=== PATIENT | female | born 1955 | race Caucasian/White ===

== ENCOUNTER 2016-09-23 04:35 | Emergency (ER) | payer BC ==
[~2016-09-23] VITALS: Ht 154.9 cm; Wt 55.7 kg
[~2016-09-23 04:35] MED LIST: FAMO20TA11 PO
[2016-09-23 04:40] VITALS: TEMP 36.7; Ht 154.9 cm; Wt 55.7 kg
--- NOTE | 2016-09-23 04:47 | EMERGENCY ROOM VISIT NOTE ---
History Report prepared by Marium: Pablo Carson Under the Supervision of: Dr. Aakash Interiano D.O. First contact with patient: 04:40 Chief Complaint: ABDOMINAL PAIN Stated Complaint: NO APPETITE,DIARRHEA,PAINFUL CRAMPING,ACHING ABD History of Present Illness The patient is a 60 year old female who presents to the Emergency Room with complaints of cramping abdominal pain that began 5 days ago. She rates her pain a 2/10 in severity. She has been experiencing generalized body aches as well as a lack of appetite. Over this time, she has also been experiencing diarrhea that causes this abdominal pain. She has a past medical history of a section. She denies any recent antibiotic use. She denies any fevers. Source of History: patient Onset: 5 days ago Position: abdomen (RLQ) Symptom Intensity: 2/10 Quality: cramping Timing: constant Associated Symptoms: + nausea, + diarrhea, No fevers Review of Systems See HPI for pertinent positives and negatives. A total of ten systems were reviewed and were otherwise negative. Family History Omitted secondary to age. Social History Smoking Status: Never Smoker Smokeless Tobacco Use: No Drug Use: none Marital Status: Housing Status: lives with significant other Current/Historical Medications No Active Prescriptions or Reported Meds Allergies Coded Allergies: Aspirin (Unverified Allergy, Unknown, UNKNOWN, 09/23/16) BEE STING (Verified Allergy, Unknown, SWELLING, 09/23/16) Penicillins (Verified Allergy, Unknown, UNKNOWN, 09/23/16) Physical Exam Vital Signs Date Time Temp Pulse Resp B/P (MAP) Pulse Ox O2 Delivery O2 Flow Rate FiO2 09/23/16 06:23 75 18 129/75 98 Room Air 09/23/16 04:40 36.7 104 20 134/85 95 Room Air Physical Exam GENERAL: Awake, alert, well-appearing, in no distress HENT: Normocephalic, atraumatic. Oropharynx unremarkable. EYES: Normal conjunctiva. Sclera non-icteric. NECK: Supple. No nuchal rigidity. FROM. No JVD. RESPIRATORY: Clear to auscultation. CARDIAC: Regular rate, normal rhythm. Extremities warm and well perfused. Pulses equal. ABDOMEN: Soft, non-distended. Mild RLQ tenderness to palpation. No rebound, rigidity, or guarding. No masses. RECTAL: Deferred. MUSCULOSKELETAL: Chest examination reveals no tenderness. The back is symmetrical on inspection without obvious abnormality. There is no CVA tenderness to palpation. No joint edema. LOWER EXTREMITIES: Calves are equal size bilaterally and non-tender. No edema. No discoloration. NEURO: Normal sensorium. No sensory or motor deficits noted. SKIN: No rash or jaundice noted. Medical Decision & Procedures ER Provider Diagnostic Interpretation: X ray results as stated below per my interpretation and radiologist interpretation. Other radiology results as stated below per my review and radiologist interpretation CT ABDOMEN & PELVIS: Colonic wall thickening most prominent at the ascending and transverse colon, compatible with colitis. Differential considerations include inflammatory, infectious, or ischemic etiologies. Small-moderate pelvic free fluid. No free air. No evidence of bowel obstruction. Normal caliber appendix. Additional incidental findings. Radiologist: Lashonda Lennon M.D. Laboratory Results 09/23/16 05:00 Red Blood Count 4.85, Mean Corpuscular Volume 86.6, Mean Corpuscular Hemoglobin 30.3, Mean Corpuscular Hemoglobin Concent 35.0, Mean Platelet Volume 10.3, Neutrophils (%) (Auto) 69.7, Lymphocytes (%) (Auto) 20.9, Monocytes (%) (Auto) 7.5, Eosinophils (%) (Auto) 1.4, Basophils (%) (Auto) 0.4, Neutrophils # (Auto) 4.99, Lymphocytes # (Auto) 1.50, Monocytes # (Auto) 0.54, Eosinophils # (Auto) 0.10, Basophils # (Auto) 0.03 09/23/16 05:00 Test 09/23/16 05:00 09/23/16 05:14 White Blood Count 7.17 K/uL (4.8-10.8) Red Blood Count 4.85 M/uL (4.2-5.4) Hemoglobin 14.7 g/dL (12.0-16.0) Hematocrit 42.0 % (37-47) Mean Corpuscular Volume 86.6 fL (80-100) Mean Corpuscular Hemoglobin 30.3 pg (25-34) Mean Corpuscular Hemoglobin Concent 35.0 g/dl (32-36) Platelet Count 225 K/uL (130-400) Mean Platelet Volume 10.3 fL (7.4-10.4) Neutrophils (%) (Auto) 69.7 % Lymphocytes (%) (Auto) 20.9 % Monocytes (%) (Auto) 7.5 % Eosinophils (%) (Auto) 1.4 % Basophils (%) (Auto) 0.4 % Neutrophils # (Auto) 4.99 K/uL (1.4-6.5) Lymphocytes # (Auto) 1.50 K/uL (1.2-3.4) Monocytes # (Auto) 0.54 K/uL (0.11-0.59) Eosinophils # (Auto) 0.10 K/uL (0-0.5) Basophils # (Auto) 0.03 K/uL (0-0.2) RDW Standard Deviation 41.6 fL (36.4-46.3) RDW Coefficient of Variation 13.0 % (11.5-14.5) Immature Granulocyte % (Auto) 0.1 % Immature Granulocyte # (Auto) 0.01 K/uL (0.00-0.02) Urine Color DK YELLOW Urine Appearance CLOUDY (CLEAR) Urine pH 5.5 (4.5-7.5) Urine Specific Hamilton 1.030 (1.000-1.030) Urine Protein 1+ (NEG) Urine Glucose (UA) NEG (NEG) Urine Ketones 2+ (NEG) Urine Occult Blood NEG (NEG) Urine Nitrite NEG (NEG) Urine Bilirubin NEG (NEG) Urine Urobilinogen NEG (NEG) Urine Leukocyte Esterase NEG (NEG) Urine WBC (Auto) 1-5 /hpf (0-5) Urine RBC (Auto) 0-4 /hpf (0-4) Urine Hyaline Casts (Auto) 10-30 /lpf (0-5) Urine Epithelial Cells (Auto) >30 /lpf (0-5) Urine Bacteria (Auto) NEG (NEG) Urine Crystals CALCIUM OXALATE (NONE Urine Pathogenic Casts /lpf (0) Urine Mucus PRESENT (NONE PRSENT) Est Creatinine Clear Calc Drug Dose 50.6 ml/min Estimated GFR () 82.8 Estimated GFR (Non- 71.4 BUN/Creatinine Ratio 16.4 (10-20) Calcium Level 10.3 mg/dl (8.5-10.1) Total Bilirubin 1.6 mg/dl (0.2-1) Direct Bilirubin 0.2 mg/dl (0-0.2) Aspartate Amino Transf (AST/SGOT) 16 U/L (15-37) Alanine Aminotransferase (ALT/SGPT) 29 U/L (12-78) Alkaline Phosphatase 101 U/L (45-117) Total Protein 7.6 gm/dl (6.4-8.2) Albumin 4.0 gm/dl (3.4-5.0) Lipase 66 U/L (73-393) Bedside Hemoglobin 15.3 g/dl (12.0-16.0) Bedside Hematocrit 45 % (37-47) Bedside Sodium 139 mEq/L (135-144) Bedside Potassium 3.7 mEq/L (3.3-5.0) Bedside Chloride 101 mEq/L (101-112) Bedside Total CO2 26 mEq/l (24-31) Anion Gap 17.0 mmol/L (16-25) Bedside Blood Urea Nitrogen 15 mg/dl (7-18) Bedside Creatinine 0.8 mg/dl (0.6-1.3) Bedside Glucose (other) 139 mg/dl (70-99) Bedside Ionized Calcium (Clarisa) 1.41 mmol/l (1.12-1.32) Laboratory results reviewed by me Medications Administered Medications (Trade) Dose Ordered Sig/Yoav Route Start Time Stop Time Status Last Admin Dose Admin Sodium Chloride 1,000 ml @ 999 mls/hr Q1H1M STAT IV 09/23/16 04:55 09/23/16 05:55 DC 09/23/16 04:55 999 MLS/HR ED Course 0440: The patient was evaluated in room B7. A complete history and physical exam was performed. 0455: Ordered Sodium Chloride 1000 ml @ 999 mls/hr IV 0630: I reevaluated the patient. Discussed results and discharge instructions: She verbalized understanding and agreement. The patient is ready for discharge. Medical Decision Differential diagnoses include but are not limited to; gastritis, gastroenteritis, colitis, UTI, appendicitis, and kidney stone. Medication Reconciliation: I attest that I have personally reviewed the patient' s current medication list. Blood pressure screening: Patient was found to have normal blood pressure on screening and does not require follow-up. Resting in no distress on repeat examination. Discussed the evaluation workup of the patient and the patient's at bedside at 6:30 AM. Patient was instructed follow-up primary care physician as well as a GI physician in the very near future. She was instructed to return for increased pain fever nausea vomiting or significant abdominal pain. Impression Primary Impression: Acute colitis Scribe Attestation The scribe's documentation has been prepared under my direction and personally reviewed by me in its entirety. I confirm that the note above accurately reflects all work, treatment, procedures, and medical decision making performed by me. Departure Information Dispostion Home / Self-Care Prescriptions Hydrocodone/Acetaminophen 5MG/325MG (Force 5MG/325MG) Tab 1 TABLET PO Q6 Y for Pain, #10 TAB Prov: Aakash Interiano, DO 09/23/16 Ondasetron Odt (ZOFRAN ODT) 4 Mg Tab 4 MG SL Q6H for Nausea, #6 TAB Prov: Aakash Interiano, DO 09/23/16 Dicyclomine Hcl (BENTYL) 10 Mg Cap 10 MG PO Q8, #10 CAP Prov: Aakash Interiano, DO 09/23/16 Referrals No Doctor, Assigned (PCP) Forms HOME CARE DOCUMENTATION FORM, IMPORTANT VISIT INFORMATION Patient Instructions Abdominal Pain, [facility]
[2016-09-23] MEDS ORDERED: SODIUM CHLORIDE 0.9% 1000ML 1,000 ML IV STA (04:55)
[2016-09-23] MEDS ORDERED: OPTIRAY 320 IV PRN (05:15)
[2016-09-23 05:18] LABS: BASO % 0.4 %; BASO ABS # 0.03 K/uL (0-0.2); COMPLETE YES; EOS % 1.4 %; IG% 0.1 %; LYMPH % 20.9 %; MEAN CELL VOLUME 86.6 fL (80-100); MEAN CORPUSCULAR HEMOGLOBIN 30.3 pg (25-34); MEAN PLATELET VOLUME 10.3 fL (7.4-10.4); MONO % 7.5 %; NEUT % 69.7 %; PLATELET COUNT 225 K/uL (130-400); RED BLOOD COUNT 4.85 M/uL (4.2-5.4); WHITE BLOOD COUNT 7.17 K/uL (4.8-10.8)
[2016-09-23 05:25] LABS: URINE APPEARANCE CLOUDY (CLEAR); URINE COLOR DK YELLOW; URINE EPITHELIAL CELL AUTO >30 /lpf (0-5); URINE NITRITE NEG (NEG); URINE PH 5.5 (4.5-7.5); UROBILINOGEN NEG (NEG); ZZUR CULT IF INDIC CLEAN CATCH NO
[2016-09-23 05:28] LABS: ISTAT CREATININE 0.8 mg/dl (0.6-1.3); ISTAT HEMOGLOBIN 15.3 g/dl (12.0-16.0); ISTAT IONIZED CALCIUM 1.41 mmol/l (1.12-1.32)
[2016-09-23 05:31] LABS: MANUAL MICROSCOPIC REQUIRED? NO; REVIEW REQ? YES
[2016-09-23 05:32] LABS: URINE BILIRUBIN NEG (NEG)
[2016-09-23 05:36] LABS: BUN/CREATININE RATIO 16.4 (10-20); CALCIUM 10.3 mg/dl (8.5-10.1); CREATININE 0.87 mg/dl (0.60-1.20); POTASSIUM 3.7 mmol/L (3.5-5.1)
[2016-09-23 05:41] LABS: URINE MUCUS PRESENT (NONE PRSENT)
[2016-09-23 06:23] VITALS: BP 129/75; PULSE 75; O2SAT 98
[2016-09-23] MEDS ORDERED: ONDA4TAB10 SL (06:37)
[2016-09-23] MEDS ORDERED: DICY10CA55 PO (06:37)
[2016-09-23] MEDS ORDERED: HYDR-5688 PO (06:37)
--- NOTE | 2016-09-23 08:03 | DIAGNOSTIC IMAGING REPORT ---
CT ABD/PELVIS IV CONTRAST ONLY CLINICAL HISTORY: Right lower quadrant abdominal pain. Anorexia. Diarrhea. Cramping. COMPARISON STUDY: None. TECHNIQUE: Following the IV administration of 94 mL of Optiray-320, CT scan of the abdomen and pelvis was performed from the lung bases to the proximal femurs. Images are reviewed in the axial, sagittal, and coronal planes. IV contrast was administered without complication. CT DOSE: 245.37 mGy.cm FINDINGS: Lower chest: The heart is normal in size and configuration, without pericardial effusion. The lung bases and pleural spaces are clear. Liver: There are multiple tiny hepatic hypodensities, many of which approach water attenuation. There is however indeterminate 7 mm hypodensity within the right hepatic lobe which exceeds water attenuation. Gallbladder: Unremarkable. Spleen: Normal in size and attenuation. Pancreas: Unremarkable. Adrenal glands: Unremarkable. Kidneys: There is symmetric renal cortical enhancement. The kidneys are normal in size without hydronephrosis. Bowel: There are no transition zones indicate bowel obstruction. There is no acute diverticulitis. There is bowel wall thickening involving the colon most pronounced the level of the transverse and right colon. The findings are indicative of a nonspecific colitis. There are no findings to indicate acute appendicitis. Peritoneum: There is a small amount of free fluid in the pelvis. No free air is visualized. Vasculature: The abdominal aorta is normal in course and caliber. Adenopathy: There are mildly prominent ileocolic lymph nodes, likely reactive. Pelvic viscera: The bladder, and pelvic viscera are unremarkable. Skeletal structures: No destructive osseous lesions are seen. IMPRESSION: 1. Colonic wall thickening most pronounced involving the a sitting transverse colon consistent with a nonspecific colitis 2. No evidence of acute diverticulitis 3. Small amount of free pelvic fluid 4. No evidence of bowel obstruction. No evidence of free air 5. No evidence of acute appendicitis 6. Nonspecific subcentimeter hepatic hypodensities Electronically signed by: Magan Allen M.D. 09/23/2016 8:02 AM Dictated Date/Time: 09/23/2016 7:58 AM
== END 2016-09-23 06:51 | disposition home or self-care (01) ==
LOC: C.EDB 04:36
DX: K52.9 Noninfective gastroenteritis and colitis, unspecified (principal)